=== PATIENT | female | born 1985 | race Caucasian/White ===

== ENCOUNTER 2017-07-29 15:37 | Outpatient (CLI) | payer BC ==
[2017-07-29 17:14] LABS: Hemoglobin 12.2 g/dL (12.0-16.0); Mean Corpuscular HGB CONC 34.3 g/dL (32.0-36.0); Mean Corpuscular Hemoglobin 31.8 pg (27.0-31.0); Mean Corpuscular Volume 92.8 fl (81.0-99.0); Mean Platelet Volume 6.9 fL (7.4-10.4); Platelet Count 296 thou/uL (130-400); RBC Distribution Width 11.2 % (11.5-14.5); Red Blood Cell (RBC) Count 3.83 mill/uL (4.20-5.40)
== END 2017-07-29 15:38 | disposition home or self-care (01) ==
LOC: LABBT 15:37
PROVIDERS: ATTEND Obstetrics & Gynecology
DX: Z01.812 Encounter for preprocedural laboratory examination (principal)
CPT/HCPCS: 85027; 86850; 86870; 86900; 86901; 86922

== ENCOUNTER → 2017-07-31 | Day surgery (SDC) | payer BC, OTHER ==
[2017-07-29 15:53] VITALS: BMI 32.6
--- NOTE | 2017-07-30 08:03 | HP ---
She is set for outpatient surgery on 07/31/2017. HISTORY OF PRESENT ILLNESS: Ms. Thomson is a 32-year-old white female G2, P1 who was recently seen for a new OB appointment on 07/17/2017. Unfortunately, she was noted by transvaginal ultrasound to h ave 7 week 5-day empty gestational sac consistent with blighted ovum. She was giving the Cytotec pro tocol with oral sublingual Cytotec for this in 2-3 prescribed doses. She had heavy bleeding and pass age of some tissue. She has continued to have some bleeding off and on, not heavy, but is seen today here for followup. On transvaginal ultrasound today, she did show evidence of passage of the sac, b ut there is still quite a bit of retained tissue noted within the uterine cavity. She is afebrile an d has no evidence of pelvic infection. PAST MEDICAL HISTORY: Chronic pain from some chronic back injuries. PAST SURGICAL HISTORY: She has had 1 previous , vaginal delivery. ALLERGIES: She has no known drug allergies. SOCIAL HISTORY: She is a nonsmoker. No excessive use of alcohol. OB labs of significance, she is O negative and she had received RhoGAM 1 ampule at her visit on 07/17 when blighted ovum had been confirmed. PHYSICAL EXAMINATION: VITAL SIGNS: The patient's weight is 212 pounds and blood pressure 116/70. HEENT: Within normal limits. CHEST: Clear to auscultation. HEART: Regular rate and rhythm. S1 and S2 heart sounds, no murmurs, rubs or gallops. ABDOMEN: Soft, nontender, nondistended with no palpable masses. GENITOURINARY: Vulva and vagina had no lesions. Slight amount of bleeding noted. Cervical os was c losed. Uterus is 6-8 weeks size and nontender. Adnexa are nontender with no masses. ASSESSMENT: A 32-year-old G2, now P2 with recent blighted ovum with Cytotec therapy with some retain ed products of conception. PLAN: Is to proceed with suction D&C to remove remainder products of conception sent for 07/31/2017. The patient was offered another round of Cytotec, but she declined due to the side effect she felt in relation to the medication.
[~2017-07-31] MED LIST: CEFAZOLIN/Water 2 GM/20 ML SYRINGE ONE; Dexamethasone 20 MG/5 ML VIAL ONE; Fentanyl 100 MCG/2 ML VIAL ONE; Lidocaine 1% PF 5 ML VIAL ONE; Midazolam HCl 2 mg/2 ml Vial ONE; Ondansetron HCl/PF 4 MG/2 ML Vial ONE; PROPOFOL 200 MG/20 ML VIAL ONE
--- NOTE | 2017-07-31 20:41 | OP ---
DATE OF PROCEDURE: 07/31/2017 PREOPERATIVE DIAGNOSES: 1. A 32-year-old white female, G2, P1 with recent 7-week 5-day blighted ovum status post Cytotec pro tocol with retained products of conception. 2. Rh negative status post RhoGAM administration. POSTOPERATIVE DIAGNOSES: 1. A 32-year-old white female, G2, P1 with recent 7-week 5-day blighted ovum status post Cytotec pro tocol with retained products of conception. 2. Rh negative status post RhoGAM administration. PROCEDURE PERFORMED: Suction dilation and curettage of retained products of conception. SURGEON: Sugey Erickson M.D. ANESTHESIA: General with LMA. ESTIMATED BLOOD LOSS: Less than 50 mL COMPLICATIONS: None. COUNTS: Correct x2. ANTIBIOTICS: Two grams of Ance[employer] telephone betting clerk to the OR. FINDINGS: 1. Uterus sounded to 10 cm through with products of conception in the cervical os removed with ring forceps. 2. Post-suction D&C, the endometrial cavity noted gritty texture throughout on sharp curettage. DISPOSITION: To the recovery room stable and then discharged home. DESCRIPTION OF OPERATIVE PROCEDURE: The patient previously received informed consent in regard to [facility]. She was taken back to the operating room where she received a general anesthetic agent with L MA. She was placed in the dorsal lithotomy position, prepped and draped in the usual sterile fashion . In and out catheterization of the bladder was performed with approximately 100 mL of clear urine d raining. A Juno speculum was placed in the vagina. There was noted to be some products of concep tion just inside the cervical os and this was removed with ring forceps and sent for final path. Ant erior lip of the cervix was grasped with a single-tooth tenaculum. The uterus sounded to 10 cm. A s ize 8 mm curved curette suction was then placed easily through the cervical os and the endometrial ca vity was evacuated under suction at 15 mm of pressure. Sharp curettage again was performed. Gritty texture throughout was confirmed at the end of the endometrial cavity. The surgery was then complete d. The tenaculum was removed. Hemostasis of tenaculum site was confirmed and the speculum was remov ed. The patient was awakened from anesthesia, transferred to recovery room, plan for discharge home.
== END ==
LOC: SDC 09:13
PROVIDERS: ATTEND Obstetrics & Gynecology
PROC: 10D17ZZ Extraction of Products of Conception, Retained, Via Natural or Artificial Opening (ICD-10-PCS; principal; 2017-07-31)
DX: O03.4 Incomplete spontaneous abortion without complication (principal); Z88.8 Allergy status to other drugs, medicaments and biological substances
CPT/HCPCS: 88305; 96374; J1100; J2001; J2250; J2405; J2704; J3010